=== PATIENT | female | born 1950 | race Caucasian/White ===

== ENCOUNTER 2016-08-12 11:39 | Day surgery (SDC) | payer MEDICARE ==
[2016-08-12] MEDS ORDERED: Buffered Lidocaine 0.9% SYRIN* 5 ML/SYR SYRINGE ONE (12:21)
[2016-08-12] MEDS ORDERED: fentaNYL* 50 MCG/ML 2 ML VIAL (100 MCG VIAL) ONE ×2 (13:16→14:58)
[2016-08-12] MEDS ORDERED: Midazolam* 1 MG/ML 2 ML VIAL (2 MG) ONE ×2 (13:16→14:20)
[2016-08-12] MEDS ORDERED: Bupivacaine 0.25% SDV* 30 ML ONE (13:55)
[2016-08-12] MEDS ORDERED: Famotidine IV* 10 MG/ML 2 ML (20 mg) ONE (14:07)
[2016-08-12] MEDS ORDERED: Mepivacaine 2% MPF (20 MG/ML)* 20 ML MPF ONE (14:07)
[2016-08-12] MEDS ORDERED: ROPIVACAINE 5 MG/ML 30 ML BTL (0.5%) ONE (14:07)
[2016-08-12] MEDS ORDERED: ceFAZolin 2 GM PREMIX(*) 2 GM/50 ML BAG IVPB ONE (14:31)
[2016-08-12] MEDS ORDERED: Ketorolac INJ* 30 MG/ML 1 ML VIAL ONE (14:38)
[2016-08-12] MEDS ORDERED: KETAMINE HCL* 50 MG/ML 10 ML VIAL ONE (14:39)
[2016-08-12] MEDS ORDERED: Dexamethasone IV* 4 MG/ML 1 ML (4 MG) ONE (14:43)
[2016-08-12] MEDS ORDERED: Ondansetron INJ* 2 MG/ML VIAL ONE (14:43)
[2016-08-12] MEDS ORDERED: diPHENhydraMINE IV* 50 MG/ML 1 ml VIAL (BENADRYL) ONE (14:45)
[2016-08-12] MEDS ORDERED: PROCHLORPERAZINE INJ 5 MG/ML 2 ML VIAL IV PRN (15:12)
[2016-08-12] MEDS ORDERED: HYDROcodone/ACETAMIN 5-325 MG* 1 TAB PO PRN (15:12)
[2016-08-12] MEDS ORDERED: Ondansetron INJ* 2 MG/ML VIAL IV PRN (15:12)
[2016-08-12] MEDS ORDERED: Acetaminophen TAB* 325 MG PO PRN (15:12)
[2016-08-12 16:06] VITALS: BP 148/72
--- NOTE | 2016-08-13 04:27 | OP ---
DATE OF OPERATION: 08/12/16 - [facility] DATE OF : 50 SURGEON: Saturnino Franco MD [employer] INSPECTOR: CALVIN Yi ANESTHESIOLOGIST: Dr. [place] ANESTHESIA: Supraclavicular block with MAC. PRE-OP DIAGNOSIS: Right posterior elbow olecranon bursitis. POST-OP DIAGNOSIS: Right posterior elbow olecranon bursitis. PROCEDURE PERFORMED: Right elbow olecranon bursectomy. INDICATIONS: Rae has had a firm mass on the posterior aspect of the right elbow for quite sometime. We tried to just give it some time to go away, persisted. It was a little bit more firm and nodular and so I did send her for an MRI and it came back as consistent with olecranon bursitis. We talked about risks and benefits. She wanted it excised. ESTIMATED BLOOD LOSS: 5 mL. COMPLICATIONS: None. FINDINGS: Significant right elbow olecranon bursitis as expected. DESCRIPTION OF PROCEDURE: Rae was seen in the preoperative holding area and the correct side, site, and procedure were identified. We came back to the operating room where a supraclavicular block was performed. She was positioned in the lateral decubitus position. The arm was prepped and draped in the usual fashion. A formal time-out was performed. I began by making a 5 cm incision directly overlying the posterior elbow. Full - thickness flaps were raised right off of the olecranon bursa. This was freed up sharply along all of its margins and deeply excised directly off the deep fascia and the periosteum overlying the posterior elbow. Care was taken to make sure the fascia was not penetrated deeply on the medial side so as to not injure the ulnar nerve. Once the bursa was completely excised, I went ahead and checked just to make sure there was no additional tissue that needed to removed. Everything looked clean. We infiltrated the operative area with 0.25 % Marcaine. The wound was closed with some 3-0 Polysorb deeply followed by 4-0 nylon simple interrupted sutures superficially. The would was dressed with Xeroform, 4x4's, ABD, sterile Webril, and then a couple of 6-inch Kanu bandages. Tourniquet was deflated. Please note that prior to making the incision, the arm had been exsanguinated with the Esmarch and the tourniquet inflated to 250 mmHg. The hand pinked up immediately. She was then taken to the recovery room in stable condition. [id number]/[facility] #: [id number] [place]
== END 2016-08-12 16:00 | disposition home or self-care (01) ==
LOC: OREAST 11:39
PROVIDERS: ATTEND Orthopaedic Surgery Hand Surgery
DX: M70.21 Olecranon bursitis, right elbow (principal); R73.01 Impaired fasting glucose; E55.9 Vitamin D deficiency, unspecified; E78.2 Mixed hyperlipidemia
CPT/HCPCS: 88304; J0670; J0690; J1100; J1200; J1885; J2250; J2405; J2795; J3010